=== PATIENT | female | born 1995 | race Asian ===

== ENCOUNTER 2019-02-16 10:17 | Emergency (ER) | payer SELFPAY ==
[~2019-02-16] VITALS: Ht 162.6 cm; Wt 50.8 kg
[2019-02-16] MEDS ORDERED: NKM (10:25)
[2019-02-16 10:30] VITALS: BP 111/72
--- NOTE | 2019-02-16 10:30 | NUR ---
ED Nurse Note: ambulated into ED due to rashes all over the body after eating lunch yesterday. Pt denies any pain. a/ox4. NAD noted
[2019-02-16] MEDS ORDERED: EPINEPHrine 1mg/1ml Amp IM ONE (11:00)
[2019-02-16] MEDS ORDERED: PREDNISONE20 MG ORAL (12:44)
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
[2019-02-16 12:54] VITALS: BP 111/72
--- NOTE | 2019-02-16 12:54 | NUR ---
ER DISCHARGE NOTE: Patient is cleared to be discharged per ERMD, pt is aox4, on room air, with stable vital signs. pt was given dc and prescription instructions, pt was able to verbalize understanding, pt id band removed without complications. pt is able to ambulate with steady gait. pt took all belongings.
== END 2019-02-16 12:55 | disposition home or self-care (01) ==
LOC: EMR 11:00
DX: T78.40XA Allergy, unspecified, initial encounter (principal)
CPT/HCPCS: 96372; 99283; J0171; J7512